=== PATIENT | female | born 1960 | race Caucasian/White ===

== ENCOUNTER 2018-09-17 09:50 | Emergency (ER) | payer MEDICARE, MEDICAID ==
[~2018-09-17] VITALS: Ht 160 cm; Wt 45.0 kg
[2018-09-17 10:29] VITALS: BP 119/80
[2018-09-17] MEDS ORDERED: KETOROLAC 30 MG/1 ML IM ONE (11:00)
[2018-09-17] MEDS ORDERED: DIAZEPAM 5 MG TABLET PO ONE (11:00)
[2018-09-17] MEDS ORDERED: DIAZEPAM 5 MG TABLET ONE (11:21)
[2018-09-17] MEDS ORDERED: KETOROLAC 30 MG/1 ML ONE (11:21)
== END 2018-09-17 11:32 | disposition home or self-care (01) ==
LOC: ED 11:12
DX: S39.012A Strain of muscle, fascia and tendon of lower back, initial encounter (principal); G89.29 Other chronic pain; X58.XXXA Exposure to other specified factors, initial encounter; Y93.89 Activity, other specified; Y92.89 Other specified places as the place of occurrence of the external cause; Y99.8 Other external cause status
CPT/HCPCS: 72110; 99283